=== PATIENT | female | born 1935 | race Asian ===

== ENCOUNTER 2017-01-09 00:49 | Emergency (ER) | payer MEDICARE, MEDICAID ==
[~2017-01-09] VITALS: Ht 157.5 cm; Wt 68.2 kg
[2017-01-09 02:08] LABS: MONOCYTES # (AUTO) 0.6 K/uL (0.1-1.0)
[2017-01-09 02:12] LABS: CALCIUM, TOTAL 8.5 mg/dL (8.8-10.5); CREATININE 1.01 mg/dL (0.60-1.30); POTASSIUM 4.5 mmol/L (3.5-5.1)
[2017-01-09 02:17] LABS: BASOPHILS % (AUTO) 0.1 % (0.0-2.0); EOSINOPHILS % (AUTO) 3.1 % (1.0-6.0); HEMOGLOBIN 10.6 g/dL (12.0-16.0); LYMPHOCYTES # (AUTO) 1.9 K/uL (1.0-4.8); LYMPHOCYTES % (AUTO) 23.2 % (22.0-44.0); MEAN CORPUSCULAR HEMOGLOBIN 20.4 pg (26.0-34.0); MEAN CORPUSCULAR HGB CONC 30.2 G/dL (31.0-37.0); MEAN CORPUSCULAR VOLUME 68 fL (80-100); MONOCYTES % (AUTO) 7.5 % (2.0-9.0); NEUTROPHILS # (AUTO) 5.4 K/uL (1.8-7.7); NEUTROPHILS % (AUTO) 66.1 % (40.0-70.0); PLATELET COUNT (AUTO) 243 K/uL (150-450); RED BLOOD CELL COUNT(AUTO) 5.17 MIL/uL (4.00-5.20); RED CELL DISTRIBUTION WIDTH 16.8 % (11.5-14.5); WHITE BLOOD COUNT (AUTO) 8.2 K/uL (4.5-11.0)
[2017-01-09 02:18] LABS: ALBUMIN 3.2 g/dL (3.4-5.0); BILIRUBIN,TOTAL 0.4 mg/dL (0.1-1.0)
[2017-01-09 02:27] LABS: APPEARANCE,URINE TURBID (CLEAR); GLUCOSE, URINE (UA) 100 mg/dL (NEGATIVE); KETONES,URINE TRACE mg/dL (NEGATIVE); LEUKOCYTE ESTERASE ,URINE LARGE (NEGATIVE); OCCULT BLOOD,URINE NEGATIVE (NEGATIVE); PH,URINE 8.5 (5.0-8.0); PROTEIN,URINE SEE CONFIRM (NEGATIVE)
[2017-01-09 02:29] LABS: ADD UA MICROSCOPIC YES
[2017-01-09 02:44] LABS: RBC,URINE 0-2 /HPF (0-2); SQUAMOUS EPITHELIAL CELL,UR Few /LPF (None Seen); SULFOSALICYLIC ACID,URINE 2+ (Negative)
[2017-01-09 02:45] LABS: AMORPHOUS SEDIMENT,UR Moderate /LPF (None Seen); TRIPLE PHOSPHATE CRYSTAL,UR Few /LPF (None Seen)
[2017-01-09] MEDS ORDERED: CefTRIAXone 1 GM/DEXTROSE 50 ML IV ONE (03:00)
[2017-01-09 03:48] LABS: RBC MORPHOLOGY COMMENT ABNORMAL RBC MORPH
[2017-01-09 03:55] VITALS: BP 165/90
== END 2017-01-09 04:35 | disposition home or self-care (01) ==
LOC: EMS 00:51
DX: T83.011A Breakdown (mechanical) of indwelling urethral catheter, initial encounter (principal); N39.0 Urinary tract infection, site not specified; E11.9 Type 2 diabetes mellitus without complications; E78.00 Pure hypercholesterolemia, unspecified; I10 Essential (primary) hypertension; J44.9 Chronic obstructive pulmonary disease, unspecified
CPT/HCPCS: 36415; 80053; 81001; 81002; 83690; 84484; 85025; 87077; 87086; 87186; 96365; 99284; J0696

== ENCOUNTER → 2017-01-09 | Outpatient (CLI) | payer MEDICARE, MEDICAID ==
[~2017-01-09] MED LIST: ADV500 IH; ALLO100T PO; AMLO-511 PO; ASPI-1093 PO; ATOR20TA86 PO; CALC-451 PO; GABA-318 PO; HYDR25 PO; METF500T4 PO; MULT1CAP32 PO; NEBI10TA PO; TIOT185 IH; TRAM50TA4 PO
[2017-01-09 14:44] LABS: BASOPHILS % (AUTO) 0.4 % (0.0-2.0); HEMATOCRIT 36.1 % (36-46); LYMPHOCYTES # (AUTO) 1.5 K/uL (1.0-4.8); LYMPHOCYTES % (AUTO) 17.7 % (22.0-44.0); MEAN CORPUSCULAR HEMOGLOBIN 20.8 pg (26.0-34.0); MEAN CORPUSCULAR HGB CONC 30.6 G/dL (31.0-37.0); MEAN CORPUSCULAR VOLUME 68 fL (80-100); MONOCYTES # (AUTO) 0.7 K/uL (0.1-1.0); MONOCYTES % (AUTO) 8.6 % (2.0-9.0); NEUTROPHILS % (AUTO) 70.3 % (40.0-70.0); PLATELET COUNT (AUTO) 253 K/uL (150-450); WHITE BLOOD COUNT (AUTO) 8.6 K/uL (4.5-11.0)
[2017-01-09 15:04] LABS: ALBUMIN 3.3 g/dL (3.4-5.0); BILIRUBIN,TOTAL 0.3 mg/dL (0.1-1.0); CALCIUM, TOTAL 8.9 mg/dL (8.8-10.5); CHOL/HDL RATIO 2.4 (3.9-5.7); CREATININE 1.08 mg/dL (0.60-1.30); POTASSIUM 4.8 mmol/L (3.5-5.1); THYROID STIMULATING HORMONE 2.44 uIU/mL (0.36-3.74); TOTAL PROTEIN, SERUM 7.1 g/dL (6.4-8.2)
[2017-01-09 15:32] LABS: RBC MORPHOLOGY COMMENT ABNORMAL RBC MORPH
[2017-01-09 16:17] LABS: HEMOGLOBIN A1C 5.5 % (4.5-6.2)
[2017-01-10 18:20] LABS: CREATININE, URINE (mALB) 48.6 mg/dL (Not Estab.)
== END | disposition home or self-care (01) ==
LOC: LABPV 12:42
PROVIDERS: ATTEND Internal Medicine
DX: I10 Essential (primary) hypertension (principal); E11.9 Type 2 diabetes mellitus without complications; E78.2 Mixed hyperlipidemia
CPT/HCPCS: 82043; 82570; 83036; 84443

== ENCOUNTER 2017-03-09 13:44 | Emergency (ER) | payer MEDICARE, MEDICAID ==
[~2017-03-09] VITALS: Ht 152.4 cm; Wt 69.0 kg
[~2017-03-09 13:44] MED LIST changes: -HYDR25 PO; +HYDR25TA84 PO
[2017-03-09 14:16] VITALS: BP 118/56
[2017-03-09 14:27] LABS: GLUCOSE COMMENT 1 Repeated; GLUCOSE,POINT OF CARE 101 MG/DL (70-110)
== END 2017-03-09 16:43 | disposition home or self-care (01) ==
LOC: EMS 13:46
DX: R33.9 Retention of urine, unspecified (principal); E11.9 Type 2 diabetes mellitus without complications; I10 Essential (primary) hypertension; E78.00 Pure hypercholesterolemia, unspecified; J44.9 Chronic obstructive pulmonary disease, unspecified
CPT/HCPCS: 51702; 82962; 99284

== ENCOUNTER → 2017-04-17 | Outpatient (CLI) | payer MEDICARE, MEDICAID ==
[~2017-04-17] MED LIST changes: +HYDR25 PO; -HYDR25TA84 PO
[2017-04-17 16:17] LABS: BASOPHILS # (AUTO) 0.07 K/uL (0.00-0.20); BASOPHILS % (AUTO) 1.2 % (0.0-2.0); EOSINOPHILS # (AUTO) 0.18 K/uL (0.00-0.70); EOSINOPHILS % (AUTO) 3.02 % (1.0-6.0); HEMATOCRIT 34.6 % (36-46); HEMOGLOBIN 10.5 g/dL (12.0-16.0); LYMPHOCYTES # (AUTO) 2.1 K/uL (1.0-4.8); MEAN CORPUSCULAR HEMOGLOBIN 21.1 pg (26.0-34.0); MEAN CORPUSCULAR HGB CONC 30.4 G/dL (31.0-37.0); MEAN CORPUSCULAR VOLUME 69 fL (80-100); MONOCYTES # (AUTO) 0.5 K/uL (0.1-1.0); MONOCYTES % (AUTO) 8.5 % (2.0-9.0); NEUTROPHILS % (AUTO) 51.4 % (40.0-70.0); PLATELET COUNT (AUTO) 266 K/uL (150-450); RED BLOOD CELL COUNT(AUTO) 4.99 MIL/uL (4.00-5.20); RED CELL DISTRIBUTION WIDTH 17.1 % (11.5-14.5); WHITE BLOOD COUNT (AUTO) 5.8 K/uL (4.5-11.0)
[2017-04-17 16:49] LABS: HEMOGLOBIN A1C 5.5 % (4.5-6.2)
[2017-04-17 17:14] LABS: ALBUMIN 3.5 g/dL (3.4-5.0); BILIRUBIN,TOTAL 0.5 mg/dL (0.1-1.0); CALCIUM, TOTAL 8.9 mg/dL (8.8-10.5); CREATININE 1.08 mg/dL (0.60-1.30); THYROID STIMULATING HORMONE 1.48 uIU/mL (0.36-3.74); TOTAL PROTEIN, SERUM 6.7 g/dL (6.4-8.2)
[2017-04-17 17:55] LABS: RBC MORPHOLOGY COMMENT ABNORMAL RBC MORPH
[2017-04-17 18:09] LABS: POTASSIUM 3.3 mmol/L (3.5-5.1)
[2017-04-18 11:36] LABS: CREATININE, URINE (mALB) 82.3 mg/dL (Not Estab.)
== END | disposition home or self-care (01) ==
LOC: LABPV 15:01
PROVIDERS: ATTEND Internal Medicine
DX: E11.9 Type 2 diabetes mellitus without complications (principal); E55.9 Vitamin D deficiency, unspecified; I10 Essential (primary) hypertension; E78.2 Mixed hyperlipidemia
CPT/HCPCS: 82043; 82306; 82570; 83036; 84443

== ENCOUNTER 2017-05-27 12:24 | Emergency (ER) | payer MEDICARE, MEDICAID ==
[~2017-05-27] VITALS: Ht 152.4 cm; Wt 63.6 kg
[~2017-05-27 12:24] MED LIST changes: -HYDR25 PO; +HYDR25TA84 PO
[2017-05-27 15:00] VITALS: BP 141/72
[2017-05-27 15:29] LABS: APPEARANCE,URINE CLOUDY (CLEAR); GLUCOSE, URINE (UA) NEGATIVE (NEGATIVE); KETONES,URINE NEGATIVE (NEGATIVE); LEUKOCYTE ESTERASE ,URINE MODERATE (NEGATIVE); OCCULT BLOOD,URINE NEGATIVE (NEGATIVE); PH,URINE 6.5 (5.0-8.0); PROTEIN,URINE NEGATIVE (NEGATIVE)
[2017-05-27 15:39] LABS: RBC,URINE 0-2 /HPF (0-2); SQUAMOUS EPITHELIAL CELL,UR Few /LPF (None Seen); WBC,URINE 26-50 /HPF (0-5)
== END 2017-05-27 15:51 | disposition home or self-care (01) ==
LOC: EMS 12:27
DX: R33.9 Retention of urine, unspecified (principal); N39.0 Urinary tract infection, site not specified; E11.9 Type 2 diabetes mellitus without complications; E78.00 Pure hypercholesterolemia, unspecified; I10 Essential (primary) hypertension; J44.9 Chronic obstructive pulmonary disease, unspecified; M10.9 Gout, unspecified; Z79.82 Long term (current) use of aspirin
CPT/HCPCS: 51702; 82962; 87086; 99284

== ENCOUNTER 2017-07-09 14:08 | Emergency (ER) | payer MEDICARE, MEDICAID ==
[~2017-07-09] VITALS: Ht 152.4 cm; Wt 67.3 kg
[~2017-07-09 14:08] MED LIST changes: -ASPI-1093 PO; +ASPI-1182 PO; -TIOT185 IH
[2017-07-09 14:27] LABS: GLUCOSE,POINT OF CARE 96 MG/DL (70-110)
[2017-07-09 15:56] VITALS: BP 168/69
[2017-07-14] MEDS ORDERED: CHL25 PO (16:23)
== END 2017-07-09 15:56 | disposition home or self-care (01) ==
LOC: EMS 14:09
DX: T83.038A Leakage of other urinary catheter, initial encounter (principal); J44.9 Chronic obstructive pulmonary disease, unspecified; E11.9 Type 2 diabetes mellitus without complications; E78.00 Pure hypercholesterolemia, unspecified; I10 Essential (primary) hypertension; M10.9 Gout, unspecified
CPT/HCPCS: 51702; 82962; 99284

== ENCOUNTER 2017-09-23 16:27 | Emergency (ER) | payer MEDICARE, MEDICAID ==
[~2017-09-23] VITALS: Ht 152.4 cm; Wt 68.1 kg
[~2017-09-23 16:27] MED LIST changes: -ADV500 IH; -AMLO-511 PO; -ASPI-1182 PO; -CALC-451 PO; +CHL25 PO; -NEBI10TA PO; -TRAM50TA4 PO
[2017-09-23 18:30] VITALS: BP 132/62
== END 2017-09-23 19:06 | disposition home or self-care (01) ==
LOC: EMS 16:28
DX: N39.0 Urinary tract infection, site not specified (principal); J98.8 Other specified respiratory disorders; R05 Cough; I10 Essential (primary) hypertension; E78.00 Pure hypercholesterolemia, unspecified; E11.9 Type 2 diabetes mellitus without complications; J44.9 Chronic obstructive pulmonary disease, unspecified; Z46.6 Encounter for fitting and adjustment of urinary device
CPT/HCPCS: 51702; 82962; 99284

== ENCOUNTER → 2017-10-05 | Outpatient (CLI) | payer MEDICARE, MEDICAID ==
[2017-10-05 15:30] LABS: CALCIUM, TOTAL 9.1 mg/dL (8.8-10.5); CREATININE 0.95 mg/dL (0.60-1.30); MAGNESIUM 1.6 mg/dL (1.80-2.40)
[2017-10-05 16:10] LABS: POTASSIUM 2.9 mmol/L (3.5-5.1)
== END | disposition home or self-care (01) ==
LOC: LABPV 14:46
PROVIDERS: ATTEND Internal Medicine Nephrology
DX: E11.9 Type 2 diabetes mellitus without complications (principal); E78.5 Hyperlipidemia, unspecified; M10.9 Gout, unspecified
CPT/HCPCS: 83735

== ENCOUNTER → 2017-10-15 | Outpatient (CLI) | payer MEDICARE, MEDICAID ==
[2017-10-15 13:26] LABS: HEMATOCRIT 32.5 % (36-46); HEMOGLOBIN 10.1 g/dL (12.0-16.0)
[2017-10-15 13:43] LABS: HEMOGLOBIN A1C 5.5 % (4.5-6.2)
[2017-10-15 13:44] LABS: CALCIUM, TOTAL 9.2 mg/dL (8.8-10.5); CHOL/HDL RATIO 2.1 (3.9-5.7); CREATININE 0.93 mg/dL (0.60-1.30); POTASSIUM 3.6 mmol/L (3.5-5.1)
== END | disposition home or self-care (01) ==
LOC: LABMN 12:51
PROVIDERS: ATTEND Internal Medicine
DX: I10 Essential (primary) hypertension (principal); E78.5 Hyperlipidemia, unspecified; M10.9 Gout, unspecified; E11.9 Type 2 diabetes mellitus without complications; J44.9 Chronic obstructive pulmonary disease, unspecified
CPT/HCPCS: 81050; 82575; 83036; 84133; 84156; 84300; 85014; 85018

== ENCOUNTER 2017-11-01 13:24 | Emergency (ER) | payer MEDICARE, MEDICAID ==
[~2017-11-01] VITALS: Ht 157.5 cm; Wt 65.9 kg
[2017-11-01 13:37] LABS: GLUCOSE,POINT OF CARE 120 MG/DL (70-110)
[2017-11-01 15:48] LABS: APPEARANCE,URINE CLOUDY (CLEAR); BILIRUBIN,URINE NEGATIVE (NEGATIVE); GLUCOSE, URINE (UA) NEGATIVE (NEGATIVE); KETONES,URINE NEGATIVE (NEGATIVE); LEUKOCYTE ESTERASE ,URINE MODERATE (NEGATIVE); OCCULT BLOOD,URINE NEGATIVE (NEGATIVE); PROTEIN,URINE NEGATIVE (NEGATIVE); UROBILINOGEN,URINE 0.2 mg/dL (<=1.0)
[2017-11-01 16:00] LABS: BACTERIA,URINE Many /HPF (None Seen); NITRATE,URINE POSITIVE (NEGATIVE); RBC,URINE 0-2 /HPF (0-2); SQUAMOUS EPITHELIAL CELL,UR Few /LPF (None Seen)
[2017-11-01 17:06] VITALS: BP 140/70
== END 2017-11-01 17:26 | disposition home or self-care (01) ==
LOC: EMS 13:25
DX: N39.0 Urinary tract infection, site not specified (principal); R33.9 Retention of urine, unspecified; I10 Essential (primary) hypertension; E78.00 Pure hypercholesterolemia, unspecified; E11.9 Type 2 diabetes mellitus without complications; J44.9 Chronic obstructive pulmonary disease, unspecified; Z46.6 Encounter for fitting and adjustment of urinary device
CPT/HCPCS: 82962; 87086; 99284

== ENCOUNTER 2018-04-27 13:30 | Emergency (ER) | payer MEDICARE, MEDICAID ==
[~2018-04-27] VITALS: Ht 152.4 cm; Wt 64.5 kg
[~2018-04-27 13:30] MED LIST changes: -METF500T4 PO; +METF500T6 PO
[2018-04-27 13:43] LABS: GLUCOSE,POINT OF CARE 116 MG/DL (70-110)
[2018-04-27 15:57] VITALS: BP 128/71
[2018-04-27] MEDS ORDERED: CEPHALEXIN MONOHYDRATE 500 MG CAPSULE PO ONE (16:00)
[2018-04-27] MEDS ORDERED: LEVOFLOXACIN 500 MG TABLET PO ONE (16:00)
[2018-04-27 16:55] LABS: APPEARANCE,URINE CLOUDY (CLEAR); BILIRUBIN,URINE NEGATIVE (NEGATIVE); GLUCOSE, URINE (UA) NEGATIVE (NEGATIVE); KETONES,URINE NEGATIVE (NEGATIVE); LEUKOCYTE ESTERASE ,URINE SMALL (NEGATIVE); NITRATE,URINE NEGATIVE (NEGATIVE); OCCULT BLOOD,URINE SMALL (NEGATIVE); PH,URINE 7.5 (5.0-8.0); PROTEIN,URINE NEGATIVE (NEGATIVE); UROBILINOGEN,URINE 0.2 mg/dL (<=1.0)
[2018-04-27 17:00] LABS: BACTERIA,URINE Few /HPF (None Seen); SQUAMOUS EPITHELIAL CELL,UR Few /LPF (None Seen)
== END 2018-04-27 16:13 | disposition home or self-care (01) ==
LOC: EMS 13:31
DX: R33.9 Retention of urine, unspecified (principal); N39.0 Urinary tract infection, site not specified; J44.9 Chronic obstructive pulmonary disease, unspecified; E78.00 Pure hypercholesterolemia, unspecified; I10 Essential (primary) hypertension; E11.9 Type 2 diabetes mellitus without complications
CPT/HCPCS: 51702; 87086; 99284

== ENCOUNTER → 2018-06-21 | Outpatient (CLI) | payer MEDICARE, MEDICAID ==
[2018-06-21 17:46] LABS: BASOPHILS % (AUTO) 0.6 % (0.0-2.0); EOSINOPHILS % (AUTO) 4.1 % (1.0-6.0); HEMATOCRIT 32.7 % (36-46); HEMOGLOBIN 10.4 g/dL (12.0-16.0); LYMPHOCYTES # (AUTO) 1.4 K/uL (1.0-4.8); LYMPHOCYTES % (AUTO) 30.6 % (22.0-44.0); MEAN CORPUSCULAR HEMOGLOBIN 20.3 pg (26.0-34.0); MEAN CORPUSCULAR HGB CONC 31.8 G/dL (31.0-37.0); MEAN CORPUSCULAR VOLUME 64 fL (80-100); MONOCYTES # (AUTO) 0.4 K/uL (0.1-1.0); MONOCYTES % (AUTO) 9.8 % (2.0-9.0); NEUTROPHILS # (AUTO) 2.4 K/uL (1.8-7.7); NEUTROPHILS % (AUTO) 54.9 % (40.0-70.0); PLATELET COUNT (AUTO) 212 K/uL (150-450); RED BLOOD CELL COUNT(AUTO) 5.11 MIL/uL (4.00-5.20); RED CELL DISTRIBUTION WIDTH 16.3 % (11.5-14.5)
[2018-06-21 18:10] LABS: HEMOGLOBIN A1C 5.7 % (4.5-6.2)
[2018-06-21 18:25] LABS: ALBUMIN 3.1 g/dL (3.4-5.0); BILIRUBIN,TOTAL 0.6 mg/dL (0.1-1.0); CALCIUM, TOTAL 9.2 mg/dL (8.8-10.5); CHOL/HDL RATIO 1.7 (3.9-5.7); CREATININE 1.02 mg/dL (0.60-1.30); POTASSIUM 4.1 mmol/L (3.5-5.1); TOTAL PROTEIN, SERUM 6.8 g/dL (6.4-8.2)
[2018-06-21 18:26] LABS: THYROID STIMULATING HORMONE 2.17 uIU/mL (0.36-3.74)
== END | disposition home or self-care (01) ==
LOC: LABPV 15:20
PROVIDERS: ATTEND Internal Medicine
DX: E11.9 Type 2 diabetes mellitus without complications (principal); E78.5 Hyperlipidemia, unspecified; I10 Essential (primary) hypertension; J44.9 Chronic obstructive pulmonary disease, unspecified
CPT/HCPCS: 82043; 82570; 83036; 84443

== ENCOUNTER 2018-08-06 13:08 | Emergency (ER) | payer MEDICARE, MEDICAID ==
[~2018-08-06] VITALS: Ht 157.5 cm; Wt 65.9 kg
[~2018-08-06 13:08] MED LIST changes: +METF-960 PO; -METF500T6 PO
[2018-08-06 13:29] LABS: GLUCOSE,POINT OF CARE 88 MG/DL (70-110)
[2018-08-06 16:10] LABS: APPEARANCE,URINE CLEAR (CLEAR); BILIRUBIN,URINE NEGATIVE (NEGATIVE); GLUCOSE, URINE (UA) NEGATIVE (NEGATIVE); KETONES,URINE NEGATIVE (NEGATIVE); LEUKOCYTE ESTERASE ,URINE SMALL (NEGATIVE); NITRATE,URINE NEGATIVE (NEGATIVE); OCCULT BLOOD,URINE TRACE (NEGATIVE); PROTEIN,URINE POS 1+ (NEGATIVE); UROBILINOGEN,URINE 0.2 mg/dL (<=1.0)
[2018-08-06 16:18] VITALS: BP 186/73
[2018-08-06 16:23] LABS: RBC,URINE 0-2 /HPF (0-2)
[2018-08-06 16:24] LABS: BACTERIA,URINE Few /HPF (None Seen); SQUAMOUS EPITHELIAL CELL,UR Rare /LPF (None Seen)
== END 2018-08-06 16:00 | disposition home or self-care (01) ==
LOC: EMS 13:09
DX: T83.098A Other mechanical complication of other urinary catheter, initial encounter (principal); J44.9 Chronic obstructive pulmonary disease, unspecified; E11.9 Type 2 diabetes mellitus without complications; E78.00 Pure hypercholesterolemia, unspecified; I10 Essential (primary) hypertension; Z87.440 Personal history of urinary (tract) infections; Z79.84 Long term (current) use of oral hypoglycemic drugs
CPT/HCPCS: 51702; 87086; 99284

== ENCOUNTER 2018-10-21 15:34 | Emergency (ER) | payer MEDICARE, MEDICAID ==
[~2018-10-21] VITALS: Ht 152.4 cm; Wt 64.5 kg
[~2018-10-21 15:34] MED LIST changes: -GABA-318 PO; +GABA600T10 PO
[2018-10-21 17:03] LABS: BASOPHILS % (AUTO) 0.9 % (0.0-2.0); EOSINOPHILS % (AUTO) 1.2 % (1.0-6.0); HEMATOCRIT 35.7 % (36-46); HEMOGLOBIN 11.2 g/dL (12.0-16.0); LYMPHOCYTES # (AUTO) 0.8 K/uL (1.0-4.8); LYMPHOCYTES % (AUTO) 16.1 % (22.0-44.0); MEAN CORPUSCULAR HGB CONC 31.4 G/dL (31.0-37.0); MEAN CORPUSCULAR VOLUME 67 fL (80-100); MONOCYTES # (AUTO) 0.3 K/uL (0.1-1.0); MONOCYTES % (AUTO) 5.5 % (2.0-9.0); NEUTROPHILS # (AUTO) 3.9 K/uL (1.8-7.7); NEUTROPHILS % (AUTO) 76.3 % (40.0-70.0); PLATELET COUNT (AUTO) 230 K/uL (150-450); RED BLOOD CELL COUNT(AUTO) 5.33 MIL/uL (4.00-5.20)
[2018-10-21 17:25] LABS: CALCIUM, TOTAL 9.3 mg/dL (8.8-10.5); CREATININE 0.97 mg/dL (0.60-1.30); POTASSIUM 4.3 mmol/L (3.5-5.1)
[2018-10-21 17:29] LABS: ALBUMIN 3.7 g/dL (3.4-5.0); BILIRUBIN,TOTAL 0.6 mg/dL (0.1-1.0); TOTAL PROTEIN, SERUM 7.4 g/dL (6.4-8.2)
[2018-10-21] MEDS ORDERED: BARIUM SULFATE 0.1% SUSPENSION 450 ML BOTTLE PO ONE (17:30)
[2018-10-21 17:42] LABS: PROTHROMBIN TIME 10.6 SEC (9.4-11.6)
[2018-10-21] MEDS ORDERED: SODIUM CHLORIDE 0.9% 100 ML ONE (17:48)
[2018-10-21] MEDS ORDERED: IOVERSOL 320 MG/ML 100 ML VIAL ONE (17:48)
[2018-10-21 18:14] LABS: APPEARANCE,URINE CLOUDY (CLEAR); BILIRUBIN,URINE NEGATIVE (NEGATIVE); GLUCOSE, URINE (UA) NEGATIVE (NEGATIVE); KETONES,URINE 15 mg/dL (NEGATIVE); LEUKOCYTE ESTERASE ,URINE MODERATE (NEGATIVE); NITRATE,URINE POSITIVE (NEGATIVE); OCCULT BLOOD,URINE NEGATIVE (NEGATIVE); PH,URINE 6.5 (5.0-8.0); PROTEIN,URINE NEGATIVE (NEGATIVE); UROBILINOGEN,URINE 0.2 mg/dL (<=1.0)
[2018-10-21 18:26] LABS: BACTERIA,URINE Moderate /HPF (None Seen); RBC,URINE None Seen /HPF (0-2); SQUAMOUS EPITHELIAL CELL,UR Few /LPF (None Seen)
[2018-10-21 18:27] LABS: AMORPHOUS SEDIMENT,UR Few /LPF (None Seen); MUCUS,URINE Rare LPF (None Seen)
[2018-10-21] MEDS ORDERED: CefTRIAXone 1 GM/DEXTROSE 50 ML IV ONE (22:45)
[2018-10-21] MEDS ORDERED: HydrALAZINE HCL 20 MG/ML VIAL IVP ONE (23:00)
[2018-10-21] MEDS ORDERED: LIDOCAINE/PF 1% 2 ML VIAL IM ONE (23:15)
[2018-10-21] MEDS ORDERED: CloNIDine HCL 0.1 MG TABLET PO ONE (23:15)
[2018-10-21] MEDS ORDERED: CefTRIAXone SODIUM 1 GM/VIAL IM ONE (23:15)
[2018-10-22 00:15] VITALS: BP 121/58
== END 2018-10-22 00:30 | disposition home or self-care (01) ==
LOC: EMS 15:37
DX: N39.0 Urinary tract infection, site not specified (principal); K64.9 Unspecified hemorrhoids; R19.7 Diarrhea, unspecified; I10 Essential (primary) hypertension; E78.00 Pure hypercholesterolemia, unspecified; E11.9 Type 2 diabetes mellitus without complications; J44.9 Chronic obstructive pulmonary disease, unspecified; Z79.899 Other long term (current) drug therapy; Z79.84 Long term (current) use of oral hypoglycemic drugs
CPT/HCPCS: 36415; 51702; 74177; 80053; 81001; 82271; 83690; 85025; 85610; 85730; 86850; 86900; 86901; 87077; 87086; 87186; 93005; 96372; 99285; J0360; J0696; J3490; J7050; Q9967

== ENCOUNTER 2019-01-17 08:27 | Emergency (ER) | payer MEDICARE, MEDICAID ==
[~2019-01-17] VITALS: Ht 152.4 cm; Wt 70.5 kg
[2019-01-17 08:39] LABS: GLUCOSE,POINT OF CARE 92 MG/DL (70-110)
[2019-01-17 09:34] LABS: GLUCOSE,POINT OF CARE 98 MG/DL (70-110)
[2019-01-17] MEDS ORDERED: HydrALAZINE HCL 25 MG TABLET PO ONE (10:00)
[2019-01-17] MEDS ORDERED: CHLORTHALIDONE 25 MG TABLET PO ONE (10:00)
[2019-01-17 11:28] VITALS: BP 155/85
== END 2019-01-17 12:49 | disposition home or self-care (01) ==
LOC: EMS 08:27
DX: Z46.6 Encounter for fitting and adjustment of urinary device (principal); J44.9 Chronic obstructive pulmonary disease, unspecified; E11.9 Type 2 diabetes mellitus without complications; E78.00 Pure hypercholesterolemia, unspecified; I10 Essential (primary) hypertension; Z79.84 Long term (current) use of oral hypoglycemic drugs
CPT/HCPCS: 51702; 82948